=== PATIENT | male | born 1955 | race Caucasian/White ===

== ENCOUNTER 2020-08-22 04:45 | Inpatient (IN) | payer OTHER, SELFPAY ==
[~2020-08-22] VITALS: Ht 167.6 cm; Wt 79.4 kg
[2020-08-22] VITALS (20 sets, daily range): BP systolic 123–157; BP diastolic 60–82
[~2020-08-22 04:45] MED LIST: ALBU0.0912 IH; ANAG0.5C2 PO; APR10 PO; ASPI-1205 PO; CALC667C3 PO; CARV6.252 PO; FLUT1BLS3 IH; FURO-570 PO; GLIP5TAB13 PO; HYDR500C PO; LEVO500T98 PO; LINA5TAB PO; LOSA100T51 PO; PROC4I
--- NOTE | 2020-08-22 04:45 | NUR ---
64 YEAR OLD MALE AOX0 WITH CHIEF COMPLAINT OF FULL ARREST. PATIENT WAS BROUGHT IN BY AMBULANCE WITH CPR IN PROGRESS AND MANUALLY VENTILATED VIA BVM BY EMS. PATIENT WAS TRANSFERRED TO HOSPITAL BED AND CPR AND VENTILATION WAS CONTINUED. HISTORY- CARDIAC, DIABETES, RENAL ALLERGIES- NKA
--- NOTE | 2020-08-22 04:45 | NUR ---
0445 PT BIBA FROM HOME IN CARDIAC ARREST -- SEE CODE BLUE RECORD AND RESUSCITATION FOR RECORD OF EVENTS. Addendum: 08/22/20 at 0655 by JODI 0445 PT BIBA FROM HOME IN CARDIAC ARREST - CPR INITIATED BY EMS ON SCENE W/ 1 ROUND OF EPINEPHRINE ADMINISTERED , COMPRESSIONS CONTINUED UPON ARRIVAL TO ER -- SEE CODE BLUE RECORD AND RESUSCITATION FOR RECORD OF EVENTS.
--- NOTE | 2020-08-22 04:50 | NUR ---
CALLED PATIENT'S DAUGHETRLYNDSEY, ADVISING THAT HER FATHER WAS BROUGHT TO [facility] DUE HIM HAVING A FULL ARREST. WAS TOLD BY ETHNOARCHAEOLOGY PROFESSOR SHE WANTED HIM TAKEN TO [facility]. LYNDSEY - [phone]
--- NOTE | 2020-08-22 04:53 | NUR ---
FAMILY WILL BE WAITING AT HOME FOR FURTHER UPDATE ON PT'S STATUS.
--- NOTE | 2020-08-22 04:53 | NUR ---
CENTRAL LINE PLACED IN RT FEMORAL BY IQRA HERNANDEZ.
[2020-08-22] MEDS ORDERED: EPINEPHrine PFS 0.1 MG/ML SYR IVP ONE ×3 (04:55→05:44)
--- NOTE | 2020-08-22 05:10 | NUR ---
BLOOD CULTURES AND BLOOD DRAW TAKEN AND HANDED TO LAB.
[2020-08-22] MEDS ORDERED: NOREPINEPHRINE 4 MG/4 ML VIAL IV ONE (05:25)
[2020-08-22] MEDS ORDERED: SODIUM BICARBONATE 8.4% PFS 50 MEQ/50 ML SYR IVP ONE (05:45)
[2020-08-22] MEDS ORDERED: EPINEPHrine 1:1000 - 1 MG/ML AMP ONE ×2 (05:45→05:47)
[2020-08-22] MEDS ORDERED: NOREPINEPHRINE 8 MG in DEXTROSE 5% 250 ML IV PRN (05:55)
[2020-08-22] MEDS ORDERED: EPINEPHrine 1:1000 (1 mg/mL) 3 MG in DEXTROSE 5% 250 ML IV ONE (05:55)
[2020-08-22 05:57] LABS: HEMATOCRIT 23.5 % (36-52); HEMOGLOBIN 7.1 g/dL (12.0-18.0); MEAN CORPUSCULAR HEMOGLOBIN 30 pg (27-31); MEAN CORPUSCULAR HGB CONC 30 g/dL (33-37); MEAN CORPUSCULAR VOLUME 100.3 fL (80-94); PLATELET COUNT (AUTO) 299 K/uL (140-450); RED BLOOD CELL COUNT(AUTO) 2.34 MIL/uL (4.20-6.10); RED CELL DISTRIBUTION WIDTH 15.2 % (11.6-13.7); WHITE BLOOD COUNT (AUTO) 20.6 K/uL (4.8-10.8)
[2020-08-22 05:58] LABS: BILIRUBIN,URINE NEGATIVE (NEGATIVE); BLOOD, URINE TRACE-I (NEGATIVE); COLOR,URINE YELLOW (YELLOW); LEUKOCYTE ESTERASE ,URINE NEGATIVE (NEGATIVE); NITRITE, URINE NEGATIVE (NEGATIVE); UGLUCOSE 3+ (NEGATIVE)
[2020-08-22 06:19] LABS: PROTHROMBIN TIME 12.3 secs (10.8-13.4)
[2020-08-22 06:24] LABS: ALBUMIN 2.1 g/dL (3.4-5.0); ANION GAP 20.7 (8-16); CARBON DIOXIDE 16.5 mmol/L (21-32); CREATININE 2.6 mg/dL (0.6-1.3); POTASSIUM 4.2 mmol/L (3.5-5.1); TOTAL BILIRUBIN 0.2 mg/dL (0.0-1.0)
[2020-08-22] MEDS ORDERED: NACL 0.9% 2,000 ML IV ONE (06:25)
[2020-08-22] MEDS ORDERED: INSULIN REGULAR, HUMAN 100 UNIT/ML VIAL IVP ONE (06:30)
[2020-08-22] MEDS ORDERED: PIPERACILLIN/TAZOBACTAM 3.375 GM in DEXTROSE 5% 50 ML IV ONE (06:30)
--- NOTE | 2020-08-22 06:30 | NUR ---
swabs collected and walked over to lab.
[2020-08-22] MEDS ORDERED: PIPERACILLIN/TAZOBACTAM 3.375 GM VIAL IV ONE (06:35)
[2020-08-22] MEDS ORDERED: AMLO10TA PO (06:41)
[2020-08-22] MEDS ORDERED: LOVA40TA4 PO (06:41)
[2020-08-22] MEDS ORDERED: ZYL300 PO (06:41)
[2020-08-22] MEDS ORDERED: ANAG0.5C PO (06:41)
[2020-08-22 06:45] LABS: APPEARANCE,URINE SLIGHTLY HAZY (CLEAR)
--- NOTE | 2020-08-22 06:52 | NUR ---
PT TAKEN TO CT VIA MALCOM Conn/ FIELD CARE COORDINATOR, RN AND RT.
--- NOTE | 2020-08-22 07:01 | NUR ---
SPOKE W/ DAUGHTER LYNDSEY AND SON PAUL W/ AN UPDATE ON PT STATUS AT THIS TIME.
--- NOTE | 2020-08-22 07:06 | NUR ---
Pt returned from CT via ranjeet wade/ RN, RT & Cobol Programmer.
[2020-08-22 07:07] LABS: D-DIMER > 5000 ng/ml (0-400)
[2020-08-22] MEDS ORDERED: MIDAZOLAM MDV 50 MG in NACL 0.9% 40 ML IV PRN (07:10)
[2020-08-22] MEDS ORDERED: MORPHINE SULFATE 10 MG/ML VIAL ONE (07:16)
[2020-08-22] MEDS ORDERED: MIDAZOLAM MDV 50 MG/10 ML VIAL IV ONE (07:16)
[2020-08-22 07:19] LABS: EOSINOPHILS % (MANUAL) 1 % (0-4); LYMPHOCYTES % (MANUAL) 22 % (20-46); MONOCYTES % (MANUAL) 6 % (5-12)
--- NOTE | 2020-08-22 07:20 | NUR ---
TRANSFER OF CARE REPORT GIVEN TO TAY RUTH.
--- NOTE | 2020-08-22 07:36 | NUR ---
PT TRANSFERRED FROM ED ROOM [address] SCAN. PT WAS TRANSFERRED WITH THE VENTILATOR AND VITAL SIGNS WERE STABLE DURING TRANSPORT AND DURING CT SCAN TIME. PT WAS TRANSFERRED BACK TO THE ED ROOM [address] PROCEDURE WAS DONE. PT THEN WAS TRANSFERRED TO ROOM 129 ICU OVERFLOW WITH NORMAL VITAL SIGNS DURING TRANSPORT TIME.
[2020-08-22 07:44] LABS: CREATINE KINASE MB 1.6 ng/mL (0-3.6)
--- NOTE | 2020-08-22 08:15 | NUR ---
RECEIVED REPORT FROM ER NURSE. ADMITTED 64 YO MALE FROM HOME. S/P FULL CARDIAC ARREST. HX OF DM, HTN, SEIZURES, STERNOTOMY. NKA, FULL CODE, UNRESPONSIVE TO PAIN STIMULI, SLUGGISH PUPILS. ETT TO VENT: AC/VC FIO2 100% R 18 P 8 TV 500. O2SAT 100%. WITH RIGHT FEMORAL CENTRAL LINE. RUNNING LEVO 10MCG, MORPHINE 1MG, VERSED 1MG, EPI 4MCG. NGT INTACT, LAZAR INTACT. SKIN ASSESMENT DONE, SKIN INTACT, LOW JEREMY. SAFETY PRECAUTIONS IN PLACE. ISOLATION PRECAUTION OBSERVED. WILL CONT TO MONITOR
--- NOTE | 2020-08-22 08:32 | NUR ---
Patient will be admitted to care of CODY MEJIA. Admited to ICU. Will go to room 129. Belongings list completed. Report to LISSETTE RUTH.
[2020-08-22] MEDS: MORPHINE SULFATE 50 MG in NACL 0.9% 45 ML IV PRN (08:34)
[2020-08-22] MEDS ORDERED: guaiFENesin DM 200/20 MG-10 ML 10 ML UDC PO PRN (08:35)
[2020-08-22] MEDS ORDERED: DOCUSATE SODIUM 100 MG GELCAP PO PRN (08:35)
[2020-08-22] MEDS ORDERED: HYDROcodone/APAP 7.5/325 MG 1 TAB PO PRN (08:35)
[2020-08-22] MEDS ORDERED: ONDANSETRON 4 MG/2 ML VIAL IM/IVP PRN (08:35)
[2020-08-22] MEDS ORDERED: ACETAMINOPHEN 325 MG TAB PO PRN (08:35)
[2020-08-22] MEDS ORDERED: ZOLPIDEM 5 MG TAB PO PRN (08:35)
[2020-08-22] MEDS: MIDAZOLAM MDV 100 MG in NACL 0.9% 80 ML IV PRN (08:36)
--- NOTE | 2020-08-22 08:39 | NUR ---
REPORT TAKEN FROM BRODIE RUTH, PT IN CRITICAL CONDITION, CRASH CART AT BEDSIDE, RT AT BEDSIDE, CENTRAL FEMORAL DRESSING WAS CLEANED AND CHANGED
[2020-08-22] MEDS ORDERED: HEPARIN PER PHARMACY MC PRN (08:40)
[2020-08-22] MEDS ORDERED: hePARIN / DEXT 5% PREMIX 250 ML IV SCH (08:40)
[2020-08-22] MEDS ORDERED: DEXTROSE 50% 50 ML SYR IVP PRN (08:45)
[2020-08-22] MEDS: ASPIRIN 81 MG TAB.CHEW PO SCH (09:00)
[2020-08-22] MEDS: carvediloL 6.25 MG TAB PO SCH ×2 (09:00→21:11)
[2020-08-22] MEDS: amLODIPine 5 MG TAB PO SCH (09:00)
[2020-08-22] MEDS: ATORVASTATIN 20 MG TAB PO SCH (09:00)
[2020-08-22] MEDS: hydrALAZINE 10 MG TAB PO SCH ×3 (09:00→17:00)
[2020-08-22] MEDS ORDERED: INSULIN LANTUS 100 UNITS/ML 10 ML VIAL SUBQ SCH ×2 (09:00→14:00)
[2020-08-22] MEDS: PANTOPRAZOLE 40 MG INJ VIAL IVP SCH (09:00)
[2020-08-22] MEDS ORDERED: ALBUTEROL SULFATE/IPRATROPIU 3 ML SOL IH PRN (09:05)
--- NOTE | 2020-08-22 09:18 | NUR ---
PATIENT HAS BEEN SCREENED AND CATEGORIZED HIGH NUTRITION RISK. PATIENT WILL BE SEEN WITHIN 1-2 DAYS OF ADMISSION. 08/22/20-08/23/[address]
[2020-08-22 09:57] LABS: CHOL/HDL RATIO 3.3 (1-4.5); FREE T4 (FREE THYROXINE) 1.07 ng/dL (0.76-1.46); MAGNESIUM 2.7 mg/dL (1.8-2.4); PHOSPHORUS 7.6 mg/dL (2.5-4.9); THYROID STIMULATING HORMONE 7.72 uIU/mL (0.34-3.74)
--- NOTE | 2020-08-22 10:53 | NUR ---
DISCHARGE PLANNING: THIS IS A 64 Y/O MALE PATIENT BIBA FROM HOME DUE TO CARDIAC ARREST. PAST MEDICAL HISTORY INCLUDE GOUT, DM, COPD, ANEMIA, KIDNEY FAILURE AND HTN. INITIAL DIAGNOSIS OF S/P FULL ARREST, DKA. CURRENT LABS INCLUDE WBC 20.6, H/H 7.1/23.5, NA/K 127/4.2, BUN/CREA 48/2.6, GLU 571, LACTIC ACID 13.3, ALB 2.1, D DIMER >5000. BLOOD AND URINE CS PENDING. RAPID COVID TEST NEGATIVE, PCR PENDING. ON ZOSYN. ORALLY INTUBATED TO VENT, FIO2 100%, PEEP 8 AND O2 SAT 100%. SEDATED WITH VERSED AND MORPHINE DRIPS. ON LEVOPHED DRIP. CARDIO, PULMO AND NEPHRO CONSULTS IN PLACE. DC PLAN PENDING ON PATIENT'S RESPONSE TO TREATMENT.
--- NOTE | 2020-08-22 11:27 | NUR ---
SOCIAL WORK NOTE: Patient's Orientation Unable To Assess Information Provided By LYNDSEY BROWN - DAUGHTER Comments SW WAS UNABLE TO MEET PATIENT AT BEDSIDE. SW COMPLETED ASSESSMENT WITH PATIENT'S DAUGHTER. Lpn Care Manager, Realtionship and Phone Number LYNDSEY RAZO [phone] Healthcare Power of Radio Talk Show Host No Does Patient Have a POLST No Identifying Problems No Social Work Triggers Is A Social Work Consult Needed No Mandate Report Filed No Explanation Of Identifying Problems PATIENT IS A 64-YEAR-OLD MALE ADMITETD FOR STATUS POST FULL ARREST. PATIENT HAS PMHX OF CARDIAC DISORDERS, COPD, DIABETES, HYPERTENSION, AND RENAL DISEASE. Admitted From Home Pre-Admission Level Of Functioning Status Assist With ADL Level Of Functioning Comment PER DAUGHTER, PATIENT RECEIVES ASSISTANCE WITH MEAL PREPARATION AND BATHING. Prior Resources/Services Used In Last 12 Months No Prior Resources Used Prior DME Home Oxygen Dialysis Comments N/A Living Situation Lives With Family House Patient Had Caregiver No Home Support No Caregiver Issues Financial Issues No Known Financial Issue Referral To The Financial Counselor Needed No Factors/Needs No D/C Needs Identified Pt/Rep Participated In Discharge Plan Yes Patient/Family Agress With Discharge Plan Yes Discharge Plan Comments TENTATIVE DISCHARGE PLAN IS FOR PATIENT TO RETURN HOME. DC Plan Status Initiated
[2020-08-22] MEDS: BLOOD GLUCOSE MONITORING 1 DEV DEV FS SCH ×3 (11:30→21:01)
[2020-08-22] MEDS: PIPERACILLIN/TAZOBACTAM 3.375 GM in DEXTROSE 5% 50 ML IV SCH ×2 (12:00→17:51)
[2020-08-22 12:09] LABS: BARBITURATE, URINE NEGATIVE ng/ml (NEG <=200); BENZODIAZEPINE, URINE NEGATIVE ng/mL (NEG <=200); CANNABINOID, URINE NEGATIVE ng/mL (NEG <=50); COCAINE, URINE NEGATIVE ng/mL (NEG <=300); OPIATE, URINE NEGATIVE ng/mL (NEG <=2000); PHENCYCLIDINE SCREEN,URINE NEGATIVE ng/mL (NEG <=25)
--- NOTE | 2020-08-22 12:20 | NUR ---
BLOOD TRANSFUSION STARTED
[2020-08-22 12:34] LABS: ANION GAP 18.3 (8-16); CARBON DIOXIDE 18.6 mmol/L (21-32); CREATININE 2.6 mg/dL (0.6-1.3); POTASSIUM 4.9 mmol/L (3.5-5.1)
[2020-08-22] MEDS: ALBUTEROL SULFATE/IPRATROPIU 3 ML SOL IH SCH ×2 (13:57→19:23)
--- NOTE | 2020-08-22 14:00 | NUR ---
BLOOD TRANSFUSION DONE. NO ADVERSE REACTIONS, VSS
[2020-08-22] MEDS: INSULIN LISPRO SLIDING SCALE 100 UNITS/ML VIAL SUBQ PRN ×3 (14:03→21:16)
[2020-08-22] MEDS ORDERED: INSULIN NPH HUM/REG INSULIN HM 100 UNIT/ML 10 ML VIAL SUBQ SCH (14:15)
[2020-08-22 16:45] LABS: BASOPHILS % (AUTO) 0.2 % (0.0-2.0); HEMATOCRIT 29.5 % (36-52); HEMOGLOBIN 9.5 g/dL (12.0-18.0); LYMPHOCYTES # (AUTO) 0.4 K/uL (2.0-11.5); LYMPHOCYTES % (AUTO) 2.2 % (20.5-51.1); MEAN CORPUSCULAR HEMOGLOBIN 30 pg (27-31); MEAN CORPUSCULAR HGB CONC 32 g/dL (33-37); MEAN CORPUSCULAR VOLUME 91.2 fL (80-94); MONOCYTES # (AUTO) 0.8 K/uL (0.8-1.0); MONOCYTES % (AUTO) 4.1 % (1.7-9.3); NEUTROPHILS # (AUTO) 18.4 K/uL (1.8-7.7); NEUTROPHILS % (AUTO) 93.5 % (42.2-75.2); PLATELET COUNT (AUTO) 277 K/uL (140-450); RED BLOOD CELL COUNT(AUTO) 3.24 MIL/uL (4.20-6.10); RED CELL DISTRIBUTION WIDTH 16.9 % (11.6-13.7); WHITE BLOOD COUNT (AUTO) 19.7 K/uL (4.8-10.8)
[2020-08-22 16:58] LABS: ANION GAP 13.1 (8-16); CARBON DIOXIDE 20.8 mmol/L (21-32); CREATININE 2.7 mg/dL (0.6-1.3); POTASSIUM 4.9 mmol/L (3.5-5.1)
[2020-08-22 17:35] LABS: FIBRINOGEN 697 mg/dL (200-400)
[2020-08-22] MEDS: hePARIN / DEXT 5% PREMIX 250 ML IV SCH (19:13)
[2020-08-22 20:54] LABS: CARBON DIOXIDE 19.4 mmol/L (21-32); POTASSIUM 5.4 mmol/L (3.5-5.1)
[2020-08-22] MEDS: INSULIN NPH HUM/REG INSULIN HM 100 UNIT/ML 10 ML VIAL SUBQ SCH (21:15)
[2020-08-22 21:50] LABS: CREATININE,URINE RANDOM 25 mg/dL (30-125); URINE SODIUM, RANDOM 23 mmol/l (40-220)
[2020-08-22] MEDS ORDERED: CRUSHER, PILL MC ONE (22:52)
[2020-08-23] VITALS (32 sets, daily range): BP systolic 88–167; BP diastolic 51–86
[2020-08-23] MEDS: PIPERACILLIN/TAZOBACTAM 3.375 GM in DEXTROSE 5% 50 ML IV SCH ×5 (01:00→23:48)
[2020-08-23] MEDS: ALBUTEROL SULFATE/IPRATROPIU 3 ML SOL IH SCH ×4 (01:20→19:42)
--- NOTE | 2020-08-23 02:20 | NUR ---
PTT=48.1 secs.; within therapeutic range; no change done to Heparin Drip rate per Rx. Slight oral bleeding upon suctioning noted; subsided after awhile. SR on the scope. Will cont to monitor.
[2020-08-23 06:26] LABS: ALBUMIN 1.8 g/dL (3.4-5.0); ANION GAP 16.5 (8-16); CARBON DIOXIDE 19.6 mmol/L (21-32); POTASSIUM 4.1 mmol/L (3.5-5.1); TOTAL BILIRUBIN 0.7 mg/dL (0.0-1.0)
[2020-08-23] MEDS: MIDAZOLAM MDV 100 MG in NACL 0.9% 80 ML IV PRN (07:02)
--- NOTE | 2020-08-23 07:20 | NUR ---
RECEIVED REPORT FROM NIGHT NURSE. 64 YO MALE FROM HOME. S/P FULL CARDIAC ARREST. HX OF DM, HTN, SEIZURES, STERNOTOMY. NKA, FULL CODE, UNRESPONSIVE TO PAIN STIMULI, SLUGGISH PUPILS. ETT TO VENT: AC/VC FIO2 70% R 18 P 8 TV 500. O2SAT 100%. WITH RIGHT FEMORAL CENTRAL LINE. RUNNING MORPHINE 2MG, VERSED 1MG. NGT INTACT, LAZAR INTACT. SKIN INTACT, LOW JEREMY. SAFETY PRECAUTIONS IN PLACE. ISOLATION PRECAUTION OBSERVED. WILL CONT TO MONITOR
[2020-08-23] MEDS: BLOOD GLUCOSE MONITORING 1 DEV DEV FS SCH ×4 (07:30→21:49)
[2020-08-23 08:08] LABS: T4 (THYROXINE) 5.1 ug/dL (4.5-12.0)
[2020-08-23] MEDS ORDERED: INSULIN LANTUS 100 UNITS/ML 10 ML VIAL SUBQ SCH (09:00)
[2020-08-23] MEDS: SODIUM FERRIC GLUCONATE 125 MG in NACL 0.9% 100 ML IV SCH (09:00)
--- NOTE | 2020-08-23 09:10 | NUR ---
DUE MORNING MEDS GIVEN. ORAL CARE AND LAZAR CARE DONE. REPOSITIONED PT
[2020-08-23] MEDS: FUROSEMIDE 40 MG/4 ML VIAL IVP SCH (09:25)
[2020-08-23] MEDS: amLODIPine 5 MG TAB PO SCH (09:27)
[2020-08-23] MEDS: PANTOPRAZOLE 40 MG INJ VIAL IVP SCH (09:27)
[2020-08-23] MEDS: ATORVASTATIN 20 MG TAB PO SCH (09:27)
[2020-08-23] MEDS: ASPIRIN 81 MG TAB.CHEW PO SCH (09:27)
[2020-08-23] MEDS: hydrALAZINE 10 MG TAB PO SCH ×3 (09:27→17:43)
[2020-08-23] MEDS: carvediloL 6.25 MG TAB PO SCH ×2 (09:27→21:29)
[2020-08-23] MEDS: INSULIN NPH HUM/REG INSULIN HM 100 UNIT/ML 10 ML VIAL SUBQ SCH ×2 (09:27→21:56)
[2020-08-23 09:36] LABS: BASOPHILS % (AUTO) 0.2 % (0.0-2.0); EOSINOPHILS % (AUTO) 0.1 % (0.0-4.0); HEMOGLOBIN 8.5 g/dL (12.0-18.0); LYMPHOCYTES # (AUTO) 0.8 K/uL (2.0-11.5); LYMPHOCYTES % (AUTO) 4.8 % (20.5-51.1); MEAN CORPUSCULAR HEMOGLOBIN 30 pg (27-31); MEAN CORPUSCULAR HGB CONC 33 g/dL (33-37); MEAN CORPUSCULAR VOLUME 89.9 fL (80-94); MONOCYTES # (AUTO) 0.7 K/uL (0.8-1.0); MONOCYTES % (AUTO) 4.4 % (1.7-9.3); NEUTROPHILS # (AUTO) 14.5 K/uL (1.8-7.7); NEUTROPHILS % (AUTO) 90.5 % (42.2-75.2); PLATELET COUNT (AUTO) 268 K/uL (140-450); RED BLOOD CELL COUNT(AUTO) 2.89 MIL/uL (4.20-6.10); RED CELL DISTRIBUTION WIDTH 17.4 % (11.6-13.7)
[2020-08-23] MEDS: MORPHINE SULFATE 50 MG in NACL 0.9% 45 ML IV PRN (12:46)
[2020-08-23] MEDS: INSULIN LISPRO SLIDING SCALE 100 UNITS/ML VIAL SUBQ PRN ×3 (12:47→21:50)
--- NOTE | 2020-08-23 14:00 | NUR ---
SEEN AND EXAMINED BY DR STILES, NO GAG REFLEX, NO CORNEAL REFLEX, PUPILS FIXED AND DILATED, NO PAIN RESPONSE. DR STILES GAVE UPDATE TO PT'S DAUGHTER LYNDSEY
--- NOTE | 2020-08-23 14:52 | NUR ---
08/23/20 RD INITIAL ASSESSMENT COMPLETED PLEASE REFER TO NUTRITION ASSESSMENT UNDER CARE ACTIVITY FOR ESTIMATED NUTRITIONAL NEEDS. 1. RECOMMENDED GLUCERNA 1.2 @ 65 ML/HR X 24 HR -PROVIDES 1560 ML OF VOLUME, 1255 ML OF WATER, 1872 KCAL AND 93 GM OF PROTEIN. MEETING OVER 90% OF KCAL AND PROTEIN NEEDS. 2. RECOMMEND FLUSH OF [address] TO FOLLOW-UP DAYS, RISK ALAINA LEWIS RD
--- NOTE | 2020-08-23 18:44 | NUR ---
VSS STABLE AT THIS TIME, VENT SETTING AC/VC FIO2 40% R 18 PEEP 8 TV 500
--- NOTE | 2020-08-23 19:40 | NUR ---
RECEIVED PT FROM DAY SHIFT ON THE VENT SETTING AC18, 500, 40% FIO2, PEEP 8. PT INTUBATED WITH SIZE 7.5 ETT SECURED WITH ANCHOR FAST @ 23CM AT TEETH. AIRWAY PATENT, NO RESPIRATORY DISTRESS NOTED. VENTILATOR PLUGGED INTO THE RED OUTLET. ALARMS SET AUDIBLE, AMBUG AT BEDSIDE. WILL CONTINUE TO MONITOR .
--- NOTE | 2020-08-23 20:40 | NUR ---
Blood Cultures (+) for Gram + cocci in clusters; Dr. Sierra made aware w/ orders to continue w/ Zosyn & to consult Dr. Armijo for ID management. Pt. SR on the scope. On Heparin Drip @ 800 units/hr. On vent via ETT w/ [id number]=96-12% on current settings. Will cont. to monitor.
[2020-08-23] MEDS: hePARIN / DEXT 5% PREMIX 250 ML IV SCH (23:47)
[2020-08-24] VITALS (33 sets, daily range): BP systolic 89–119; BP diastolic 8–71
[2020-08-24] MEDS ORDERED: SODIUM BICARBONATE 8.4% PFS 50 MEQ/50 ML SYR IVP ONE
--- NOTE | 2020-08-24 | NUR ---
Pt. PTT=73.2 secs; no changes made to Heparin drip rate @ this time. SR-SB on the scope. Tube feeding held for residuals >200 mls. Will cont. to monitor.
[2020-08-24] MEDS: ALBUTEROL SULFATE/IPRATROPIU 3 ML SOL IH SCH ×4 (01:43→19:26)
--- NOTE | 2020-08-24 05:30 | NUR ---
SB on the scope. Heparin Drip infusing @ 600 units/hr. PTT drawn; result pending. CHG bed bath, pericare, VAP oral care & Chandler Cath. care rendered. Will cont. to monitor.
[2020-08-24 05:58] LABS: BASOPHILS % (AUTO) 0.3 % (0.0-2.0); EOSINOPHILS # (AUTO) 0.2 K/uL (0-0.4); EOSINOPHILS % (AUTO) 2.1 % (0.0-4.0); HEMATOCRIT 25.9 % (36-52); HEMOGLOBIN 8.8 g/dL (12.0-18.0); LYMPHOCYTES # (AUTO) 0.5 K/uL (2.0-11.5); LYMPHOCYTES % (AUTO) 5.8 % (20.5-51.1); MEAN CORPUSCULAR HEMOGLOBIN 30 pg (27-31); MEAN CORPUSCULAR HGB CONC 34 g/dL (33-37); MEAN CORPUSCULAR VOLUME 88.8 fL (80-94); MONOCYTES # (AUTO) 0.4 K/uL (0.8-1.0); MONOCYTES % (AUTO) 4.5 % (1.7-9.3); NEUTROPHILS # (AUTO) 7.9 K/uL (1.8-7.7); NEUTROPHILS % (AUTO) 87.3 % (42.2-75.2); PLATELET COUNT (AUTO) 242 K/uL (140-450); RED BLOOD CELL COUNT(AUTO) 2.91 MIL/uL (4.20-6.10); RED CELL DISTRIBUTION WIDTH 17.2 % (11.6-13.7); WHITE BLOOD COUNT (AUTO) 9.1 K/uL (4.8-10.8)
[2020-08-24 06:33] LABS: ALBUMIN 1.5 g/dL (3.4-5.0); ANION GAP 17.1 (8-16); CARBON DIOXIDE 19.5 mmol/L (21-32); CREATININE 3.3 mg/dL (0.6-1.3); TOTAL BILIRUBIN 0.5 mg/dL (0.0-1.0)
[2020-08-24] MEDS: PIPERACILLIN/TAZOBACTAM 3.375 GM in DEXTROSE 5% 50 ML IV SCH ×3 (06:51→18:00)
--- NOTE | 2020-08-24 07:10 | NUR ---
REPORT GIVEN BY FARAZ OCTOBER W/ PATENT CONTRAPTIONS. PUPILS DILATED AND FIXED. NO GAG REFLEX SEEN. ON HEPARIN DRIP. V/S STABLE NO PRESSORS.
[2020-08-24] MEDS: BLOOD GLUCOSE MONITORING 1 DEV DEV FS SCH ×4 (07:30→20:37)
[2020-08-24 08:18] LABS: POTASSIUM 2.6 mmol/L (3.5-5.1)
--- NOTE | 2020-08-24 08:30 | NUR ---
DR. ROSS CAME IN AND UPDATED TO PT'S CONDITION W/ ORDER NOTED AND CARRIED OUT.PT'S HEART RATE 45 BEATS/MIN.
[2020-08-24] MEDS: INSULIN NPH HUM/REG INSULIN HM 100 UNIT/ML 10 ML VIAL SUBQ SCH ×2 (09:08→20:38)
[2020-08-24] MEDS: INSULIN LANTUS 100 UNITS/ML 10 ML VIAL SUBQ SCH (09:09)
[2020-08-24] MEDS: amLODIPine 5 MG TAB PO SCH (09:11)
[2020-08-24] MEDS: ATORVASTATIN 20 MG TAB PO SCH (09:12)
[2020-08-24] MEDS: carvediloL 6.25 MG TAB PO SCH ×2 (09:12→20:37)
[2020-08-24] MEDS: PANTOPRAZOLE 40 MG INJ VIAL IVP SCH (09:13)
[2020-08-24] MEDS: SODIUM FERRIC GLUCONATE 125 MG in NACL 0.9% 100 ML IV SCH (09:13)
[2020-08-24] MEDS: hydrALAZINE 10 MG TAB PO SCH ×3 (09:14→17:00)
[2020-08-24] MEDS: FUROSEMIDE 40 MG/4 ML VIAL IVP SCH (09:14)
[2020-08-24] MEDS: ASPIRIN 81 MG TAB.CHEW PO SCH (09:15)
--- NOTE | 2020-08-24 09:26 | NUR ---
[facility] CALLED FOR ROUTINE EEG, EEG TO BE DONE AROUND 12.
[2020-08-24] MEDS: POTASSIUM CHLORIDE 40 MEQ, LIDOCAINE MPF 1% 25 MG in NACL 0.9% 250 ML IV PRN (10:30)
[2020-08-24] MEDS: INSULIN LISPRO SLIDING SCALE 100 UNITS/ML VIAL SUBQ PRN ×3 (12:34→20:43)
--- NOTE | 2020-08-24 13:50 | NUR ---
PTT RESULT RELAYED AND RESULT IS HIGH 109.4 HEPARIN DRIP OFF FOR AN HOUR AND DECREASE DRIP BY 200UNITS.
--- NOTE | 2020-08-24 16:00 | NUR ---
COMPLETE BED BATH DONE. ORAL CARE RENDERED ORAL AND VIA ET TUBE SUCTIONING DONE W/ MODERATE AMOUNT OF REDDISH SECRETIONS.REPOSITIONED AND MAINTAINED ON 30 DEGREES HOB TO FACILITATE EASY BREATHING AND PREVENT ASPIRATION.
--- NOTE | 2020-08-24 18:40 | NUR ---
ALL CALLS ATTENDED AND MET DURING THE SHIFT PT. HAS NO GAG REFLEX.FOR CONTINUITY OF CARE.ENDORSED TO INCOMING STATIONARY FIREMANCHISEL TRIMMER ON CRITICAL CONDITION FOR CONTINUITY OF CARE.
--- NOTE | 2020-08-24 20:25 | NUR ---
pt's npo due to 750 mL tube feeding and pt is on schedule to get Humulin 70/30 20 units and Humalog ISS coverage. phone jackelin placed to Dr. Hammond.
--- NOTE | 2020-08-24 20:33 | NUR ---
Dr. dunne returned phone call and aware of pt's DLO=[id number] and NPO status. New orders given to administer humalog ISS and hold Humilin 70/30. Nursing Unit Operator made aware of.
[2020-08-24] MEDS ORDERED: VANCOMYCIN PER PHARMACY MC PRN (21:35)
[2020-08-24] MEDS ORDERED: VANCOMYCIN 1GM/DEXT 5% PREMIX 200 ML IV SCH (21:50)
[2020-08-25] VITALS (31 sets, daily range): BP systolic 74–127; BP diastolic 37–67
[2020-08-25] MEDS: ALBUTEROL SULFATE/IPRATROPIU 3 ML SOL IH SCH ×3 (01:47→13:25)
--- NOTE | 2020-08-25 02:35 | NUR ---
pt's HR is 40/min. asymptomatic. phone call placed to dr dunne to make him aware of.
[2020-08-25] MEDS ORDERED: ATROPINE 0.4 MG/ML VIAL IVP PRN (02:45)
[2020-08-25] MEDS ORDERED: VANCOMYCIN 1,000 MG VIAL ONE (02:59)
[2020-08-25] MEDS: DOPamine 400 MG/D5W PREMIX 250 ML IV PRN ×5 (03:55→17:15)
[2020-08-25] MEDS: PIPERACILLIN/TAZOBACTAM 3.375 GM in DEXTROSE 5% 50 ML IV SCH ×3 (05:32→20:59)
[2020-08-25 06:27] LABS: ALBUMIN 1.7 g/dL (3.4-5.0); ANION GAP 18.6 (8-16); BASOPHILS % (AUTO) 0.2 % (0.0-2.0); CARBON DIOXIDE 18.8 mmol/L (21-32); CREATININE 3.5 mg/dL (0.6-1.3); EOSINOPHILS # (AUTO) 0.1 K/uL (0-0.4); EOSINOPHILS % (AUTO) 2.3 % (0.0-4.0); HEMATOCRIT 31.7 % (36-52); LYMPHOCYTES # (AUTO) 0.4 K/uL (2.0-11.5); LYMPHOCYTES % (AUTO) 6.6 % (20.5-51.1); MEAN CORPUSCULAR HEMOGLOBIN 30 pg (27-31); MEAN CORPUSCULAR HGB CONC 35 g/dL (33-37); MEAN CORPUSCULAR VOLUME 87.7 fL (80-94); MONOCYTES # (AUTO) 0.2 K/uL (0.8-1.0); MONOCYTES % (AUTO) 3.5 % (1.7-9.3); NEUTROPHILS # (AUTO) 5.1 K/uL (1.8-7.7); NEUTROPHILS % (AUTO) 87.4 % (42.2-75.2); PLATELET COUNT (AUTO) 197 K/uL (140-450); RED BLOOD CELL COUNT(AUTO) 3.61 MIL/uL (4.20-6.10); RED CELL DISTRIBUTION WIDTH 17.3 % (11.6-13.7); TOTAL BILIRUBIN 0.8 mg/dL (0.0-1.0); WHITE BLOOD COUNT (AUTO) 5.8 K/uL (4.8-10.8)
[2020-08-25 06:31] LABS: POTASSIUM 2.4 mmol/L (3.5-5.1)
--- NOTE | 2020-08-25 07:10 | NUR ---
REPORT GIVEN BY FARAZ FRAGOSO. STILL INTUBATED ON VENTILATOR.W/ PATENT CONTRAPTIONS.PUPILS FIXED AND DILATED AND NO GAG REFLEX SEEN. ON DOPAMINE DRIP @ 5MCG/KG/MIN. INFUSING VIA PUMP.
--- NOTE | 2020-08-25 07:13 | NUR ---
rec'd pt on carescape vent settings ac 18 vt 500 peep 8 fio2 40% alarms on and audible and vent is plugged into red outlet, bvm at [facility], i\l tx given with duoneb 3ml with no adverse reaction post tx, b\s are diminished bilaterally, sxn pt small amt of white secretions, pt is orally intubated with 7.5 ett at 23cm pt is resting
[2020-08-25] MEDS: BLOOD GLUCOSE MONITORING 1 DEV DEV FS SCH ×4 (07:30→17:36)
[2020-08-25] MEDS: FUROSEMIDE 40 MG/4 ML VIAL IVP SCH (08:53)
[2020-08-25] MEDS: hydrALAZINE 10 MG TAB PO SCH ×3 (08:54→17:36)
[2020-08-25] MEDS: PANTOPRAZOLE 40 MG INJ VIAL IVP SCH (08:54)
[2020-08-25] MEDS: carvediloL 6.25 MG TAB PO SCH ×2 (08:55→20:59)
[2020-08-25] MEDS: ASPIRIN 81 MG TAB.CHEW PO SCH (08:55)
[2020-08-25] MEDS: ATORVASTATIN 20 MG TAB PO SCH (08:56)
[2020-08-25] MEDS: amLODIPine 5 MG TAB PO SCH (08:58)
[2020-08-25] MEDS: INSULIN NPH HUM/REG INSULIN HM 100 UNIT/ML 10 ML VIAL SUBQ SCH ×2 (09:03→21:28)
[2020-08-25] MEDS: INSULIN LANTUS 100 UNITS/ML 10 ML VIAL SUBQ SCH (09:04)
--- NOTE | 2020-08-25 10:30 | NUR ---
DR. STILES CAME IN UPDATE TO PT. CONDITION NO NEW ORDER MADE.
[2020-08-25] MEDS: POTASSIUM CHLORIDE 40 MEQ, LIDOCAINE MPF 1% 25 MG in NACL 0.9% 250 ML IV PRN (11:00)
[2020-08-25] MEDS: INSULIN LISPRO SLIDING SCALE 100 UNITS/ML VIAL SUBQ PRN ×2 (11:43→17:41)
[2020-08-25] MEDS ORDERED: POTASSIUM CHLORIDE 10 MEQ TABER PO PRN (13:00)
[2020-08-25] MEDS ORDERED: MAG SULF 2000 MG/WATER PREMIX 50 ML IV PRN (13:00)
--- NOTE | 2020-08-25 13:00 | NUR ---
VISITED BY DR IBARRA UPDATES GIVEN NO ORDER LEFT. SUCTIONED SECRETIONS STILL NO GAG REFLEX.
--- NOTE | 2020-08-25 15:00 | NUR ---
PM CARE RENDERED. ORAL CARE DONE AND SUCTIONED SECRETIONS AND MAINTAINED ON 30 DEGREES HOB TO FACILITATE EASY BREATHING AND PREVENT ASPIRATION.
--- NOTE | 2020-08-25 18:13 | NUR ---
ALL NEEDS ATTENDED AND MET DURING THE SHIFT.PT'S CONDITION UNCHANGED. STILL ON DOPAMINE DRIP @ 20MCG/KG/MIN. W/ PATENT CONTRAPTIONS. TO BE ENDORSED TO BEAUTY PARLOR CLEANERPERSONNEL QUALITY ASSURANCE AUDITOR, FOR FURTHER CARE .
[2020-08-25 18:55] LABS: ANION GAP 20.7 (8-16); CREATININE 3.8 mg/dL (0.6-1.3)
[2020-08-25 19:00] LABS: POTASSIUM 2.7 mmol/L (3.5-5.1)
--- NOTE | 2020-08-25 20:00 | NUR ---
RECEIVED PATIENT IN 129. PATIENT REMAINS BRAIN . AWAITING FOR FAMILY CARE PHYSICIAN TO SPEAK TO THE FAMILY ABOUT THE PATIENT STATUS.
[2020-08-25] MEDS ORDERED: KCL 20 MEQ/WATER INJ PREMIX 200 ML IV ONE (20:48)
--- NOTE | 2020-08-25 22:00 | NUR ---
POTASSIUM CHLORIDE 40 MEQ RUNNING.
[2020-08-26] VITALS (18 sets, daily range): BP systolic 86–134; BP diastolic 45–78
--- NOTE | 2020-08-26 02:00 | NUR ---
AM CARE PROVIDED.
--- NOTE | 2020-08-26 04:00 | NUR ---
MOUTH CARE PROVIDED & REPOSITIONED.
[2020-08-26] MEDS: PIPERACILLIN/TAZOBACTAM 3.375 GM in DEXTROSE 5% 50 ML IV SCH ×2 (05:04→12:59)
[2020-08-26] MEDS: BLOOD GLUCOSE MONITORING 1 DEV DEV FS SCH ×4 (05:37→12:54)
[2020-08-26] MEDS: INSULIN LISPRO SLIDING SCALE 100 UNITS/ML VIAL SUBQ PRN ×2 (05:53→12:58)
--- NOTE | 2020-08-26 06:00 | NUR ---
MRW=[id number], COVERED INDICATED BY PHYSICIAN'S ORDERS.
[2020-08-26] MEDS: ALBUTEROL SULFATE/IPRATROPIU 3 ML SOL IH SCH ×2 (06:40→13:10)
--- NOTE | 2020-08-26 06:40 | NUR ---
REC'D PT ON [employer] VENT SETTINGS AC 18 VT 500 PEEP 8 FIO2 40% ALARMS ON AND AUDIBLE AND VENT IS PLUGGED INTO RED OUTLET, BVM AT [facility] I\L TX GIVEN WITH DUONEB 3ML WITH NO ADVERSE REACTION POST TX, B\S ARE DIMINISHED BILATERALLY, SXN PT SMALL AMT OF WHITE SECRETIONS, PT IS ORALLY INTUBATED WITH 7.5 ETT SECURED AT 23CM WITH CONTINUE TO MONITOR PT
--- NOTE | 2020-08-26 07:04 | NUR ---
SBAR REPORT GIVEN TO AM NURSE.
[2020-08-26] MEDS: DOPamine 400 MG/D5W PREMIX 250 ML IV PRN ×2 (07:20→11:15)
[2020-08-26] MEDS: PANTOPRAZOLE 40 MG INJ VIAL IVP SCH (08:49)
[2020-08-26] MEDS: ASPIRIN 81 MG TAB.CHEW PO SCH (08:50)
[2020-08-26] MEDS: ATORVASTATIN 20 MG TAB PO SCH (08:51)
[2020-08-26] MEDS: FUROSEMIDE 40 MG/4 ML VIAL IVP SCH (08:51)
[2020-08-26] MEDS: hydrALAZINE 10 MG TAB PO SCH ×2 (08:52→13:00)
[2020-08-26] MEDS: carvediloL 6.25 MG TAB PO SCH (08:54)
[2020-08-26] MEDS: amLODIPine 5 MG TAB PO SCH (08:55)
[2020-08-26] MEDS: INSULIN NPH HUM/REG INSULIN HM 100 UNIT/ML 10 ML VIAL SUBQ SCH (09:11)
[2020-08-26] MEDS: INSULIN LANTUS 100 UNITS/ML 10 ML VIAL SUBQ SCH (09:11)
--- NOTE | 2020-08-26 10:30 | NUR ---
REPORT GIVEN BY FARAZ FRAGOSO PT'S CONDITION STATUS QUO.ON DOPAMINE DRIP @ 30MCG/KG/ PUPILS FIXED AND DILATED. NO GAG REFLEX. PT'S FAMILY WILL COME TODAY AND WILL TERMINALLY EXTUBATE AND WILL CHANGE CODE STATUS TO DNR AND COMFORT MEASURES.
--- NOTE | 2020-08-26 11:14 | NUR ---
(08/26/20) RD FOLLOW UP COMPLETED PLEASE REFER TO NUTRITION PROGRESS NOTE UNDER CARE ACTIVITY FOR ESTIMATED NUTRITION NEEDS. RD RECOMMENDATIONS: 1. CONTINUE TO HOLD TF MEDICALLY APPROPRIATE. 2. IF/WHEN MEDICALLY APPROPRIATE AND RESPONSIBLE [employer] DECIDES THAT S/HE WOULD LIKE TO CONTINUE ON WITH TF, RESUME GLUCERNA 1.2 @ 65 ML/HR X 24 HR TOLERATED. THIS PROVIDES 1560 ML OF VOLUME, 1255 ML OF WATER, 1872 KCAL AND 93 GM OF PROTEIN. MEETING OVER 90% OF KCAL AND PROTEIN NEEDS. 3. IF/WHEN MEDICALLY APPROPRIATE AND RESPONSIBLE [employer] DECIDES THAT S/HE WOULD LIKE TO CONTINUE ON WITH TF, RESUME FLUSH OF [address] TO FOLLOW-UP 2-3 DAYS, HIGH RISK JELANI CAMPOVERDE MS, RDN
--- NOTE | 2020-08-26 13:31 | NUR ---
VISITED BY UPDATED TO PT. CONDITION BUT NO ORDER MADE. ORAL CARE RENDERED AND SUCTIONED SECRETIONS AFTER,MAINTAINED ON 30 DEGREES HOB TO FACILITATE EASY BREATHING AND PREVENT ASPIRATION.
--- NOTE | 2020-08-26 13:40 | NUR ---
PT'S FAMILY CAME IN @ PTS ROOM WINDOW AND MORPHINE SULFATE 5 MG GIVEN IV PUSH AND DRIP STARTED AFTER.RT TRU CAME IN EXTUBATED PATIENT @ 1350. PT WENT TO ASYSTOLE AND O2 SAT-10%.PRONOUNCED CLINICALLY BY @ 1420. REPORTED TO [facility] AND DECLINED ORGAN DONATION AND RELEASE THE BODY. AWAITING FOR CORONERS OFFICE TO RELEASE THEBODY.
[2020-08-26] MEDS ORDERED: MORPHINE SULFATE 50 MG in NACL 0.9% 45 ML IV SCH (13:45)
[2020-08-26] MEDS ORDERED: MORPHINE SULFATE 5 MG/ML VIAL IVP SCH (13:55)
--- NOTE | 2020-08-26 13:55 | NUR ---
PT WAS TERMINAL EXTUBATED
--- NOTE | 2020-08-26 14:40 | NUR ---
BELONGINGS (CLOTHES AND ID) GIVEN TO PT SON PAUL BROWN.
[2020-08-26 17:49] LABS: CARBON DIOXIDE 15.9 mmol/L (21-32)
[2020-08-26 17:53] LABS: CREATININE 4.2 mg/dL (0.6-1.3); POTASSIUM 2.9 mmol/L (3.5-5.1)
== END 2020-08-26 14:20 | DRG 870 ==
LOC: MED 04:45 → MTU 06:43 → MMU 07:45
PROVIDERS: ADMIT Family Medicine; ATTEND Family Medicine
PROC: 5A1955Z Respiratory Ventilation, Greater than 96 Consecutive Hours (ICD-10-PCS; principal; 2020-08-22)
PROC: 0BH17EZ Insertion of Endotracheal Airway into Trachea, Via Natural or Artificial Opening (ICD-10-PCS; 2020-08-22)
PROC: 30233N1 Transfusion of Nonautologous Red Blood Cells into Peripheral Vein, Percutaneous Approach (ICD-10-PCS; 2020-08-22)
PROC: 06HY33Z Insertion of Infusion Device into Lower Vein, Percutaneous Approach (ICD-10-PCS; 2020-08-22)
PROC: 5A12012 Performance of Cardiac Output, Single, Manual (ICD-10-PCS; 2020-08-22)
PROC: 4A10X4Z Monitoring of Central Nervous Electrical Activity, External Approach (ICD-10-PCS; 2020-08-24)
DX: A41.9 Sepsis, unspecified organism (principal); E11.10 Type 2 diabetes mellitus with ketoacidosis without coma; J18.9 Pneumonia, unspecified organism; N17.0 Acute kidney failure with tubular necrosis; E43 Unspecified severe protein-calorie malnutrition; J96.21 Acute and chronic respiratory failure with hypoxia; G93.41 Metabolic encephalopathy; I21.4 Non-ST elevation (NSTEMI) myocardial infarction; E87.1 Hypo-osmolality and hyponatremia; N18.4 Chronic kidney disease, stage 4 (severe); J44.0 Chronic obstructive pulmonary disease with (acute) lower respiratory infection; I13.0 Hypertensive heart and chronic kidney disease with heart failure and stage 1 through stage 4 chronic kidney disease, or unspecified chronic kidney disease; G93.1 Anoxic brain damage, not elsewhere classified; D68.59 Other primary thrombophilia; Z66 Do not resuscitate; E87.6 Hypokalemia; I50.9 Heart failure, unspecified; I25.10 Atherosclerotic heart disease of native coronary artery without angina pectoris; D63.8 Anemia in other chronic diseases classified elsewhere; R74.01 Elevation of levels of liver transaminase levels; H54.7 Unspecified visual loss; E78.5 Hyperlipidemia, unspecified; E83.52 Hypercalcemia; I46.9 Cardiac arrest, cause unspecified; E03.9 Hypothyroidism, unspecified; E11.22 Type 2 diabetes mellitus with diabetic chronic kidney disease; Z20.822 Contact with and (suspected) exposure to COVID-19; M10.9 Gout, unspecified; Z95.1 Presence of aortocoronary bypass graft; Z87.891 Personal history of nicotine dependence; Z79.899 Other long term (current) drug therapy; Z79.82 Long term (current) use of aspirin; Z79.84 Long term (current) use of oral hypoglycemic drugs; Z82.49 Family history of ischemic heart disease and other diseases of the circulatory system; Z91.041 Radiographic dye allergy status; Z68.28 Body mass index [BMI] 28.0-28.9, adult
CPT/HCPCS: 36415; 36600; 70450; 71045; 78582; 80048; 80053; 80202; 80305; 82150; 82550; 82553; 82570; 82728; 82803; 82948; 83036; 83540; 83605; 83690; 83735; 83874; 83880; 83935; 84100; 84300; 84436; 84439; 84443; 84479; 84484; 85025; 85379; 85384; 85610; 85730; 86886; 86900; 86901; 86920; 87040; 87070; 87081; 87086; 87205; 93925; 93970; 94003; 94640; 96361; 96365; 99291; C9113; J0171; J1265; J1644; J1815; J1940; J2001; J2250; J2270; J2543; J2916; J3370; J3480; J3490; J7030; J7060; P9016; U0003